=== PATIENT | female | born 1985 | race Caucasian/White ===

== ENCOUNTER 2018-09-08 00:23 | Emergency (ER) | payer MEDICAID, OTHER ==
[~2018-09-08] VITALS: Ht 160 cm; Wt 44.7 kg
[~2018-09-08 00:23] MED LIST: CYCL-394 PO; FLUT16SP2 NS; NAPR-56 PO; NO HOME MEDS
[2018-09-08 00:26] VITALS: BP 135/71
[2018-09-08] MEDS ORDERED: CLIN300C54 PO (00:54)
[2018-09-08] MEDS ORDERED: IBUP-1985 PO (00:54)
[2018-09-08] MEDS ORDERED: clindamycin 150mg capsule PO ONE (00:55)
== END 2018-09-08 01:09 | disposition home or self-care (01) ==
LOC: ER 00:23
DX: L03.211 Cellulitis of face (principal); F12.10 Cannabis abuse, uncomplicated; F15.10 Other stimulant abuse, uncomplicated; F17.200 Nicotine dependence, unspecified, uncomplicated; G89.29 Other chronic pain; Z86.14 Personal history of Methicillin resistant Staphylococcus aureus infection; Z56.0 Unemployment, unspecified; Z88.1 Allergy status to other antibiotic agents; Z88.0 Allergy status to penicillin
CPT/HCPCS: 99283

== ENCOUNTER 2024-01-02 19:56 | Emergency (ER) | payer MEDICAID ==
[~2024-01-02] VITALS: Ht 160 cm; Wt 57.3 kg
[~2024-01-02 19:56] MED LIST changes: +IBUP-1985 PO
[2024-01-02 20:52] LABS: BASOPHILS # (AUTO) 0.1 X10'3 (0-0.2); BASOPHILS % (AUTO) 0.4 % (0-1); EOSINOPHILS % (AUTO) 0 % (0-6); HEMATOCRIT 44.3 % (35.0-45.0); LYMPHOCYTES # (AUTO) 1.7 X10'3 (1.1-4.8); LYMPHOCYTES % (AUTO) 14.3 % (21-51); MEAN CORPUSCULAR HEMOGLOBIN 29.6 PG (27.0-31.0); MEAN PLATELET VOLUME 7.9 FL (7.4-10.4); MONOCYTES % (AUTO) 8.5 % (2-12); NEUTROPHILS # (AUTO) 9.1 X10'3 (1.8-7.7); NEUTROPHILS % (AUTO) 76.8 % (42-75); PLATELET COUNT 346 X10'3 (140-440); RED BLOOD COUNT 5.09 X10'6 (4.20-5.60); RED CELL DISTRIBUTION WIDTH 13.4 % (11.5-14.5); WHITE BLOOD COUNT 11.9 X10'3 (4.5-11.0)
[2024-01-02 21:04] LABS: ALANINE AMINOTRANSFERASE 15 U/L (12-78); ALBUMIN 3.2 G/DL (3.4-5.0); ALBUMIN/GLOBULIN RATIO 0.7 (1.1-1.5); ALKALINE PHOSPHATASE 79 IU/L (46-116); ANION GAP 12 (8-16); ASPARTATE AMINO TRANSFERASE 10 U/L (10-37); BILIRUBIN,TOTAL 0.6 MG/DL (0.1-1.0); BLOOD UREA NITROGEN 16 MG/DL (7-18); CALCIUM 8.2 MG/DL (8.5-10.1); CHLORIDE 101 MMOL/L (99-107); CREATININE 0.89 MG/DL (0.40-0.90); GLUCOSE 123 MG/DL (70-104); LIPASE 24 U/L (16-77); POTASSIUM 3.6 MMOL/L (3.5-5.1); SODIUM 134 MMOL/L (135-145); TOTAL CARBON DIOXIDE 21.1 MMOL/L (24-32); TOTAL PROTEIN 7.7 G/DL (6.4-8.2); eCRCL 72 ML/MIN; eGFR 71 ML/MIN
[2024-01-02 21:14] VITALS: TEMP 100.9
[2024-01-02 21:14] LABS: BILIRUBIN,URINE SMALL (Neg); CLARITY,URINE SLIGHTLY CLOUDY (Clear); COLOR,URINE YELLOW (Yellow); GLUCOSE, URINE NEGATIVE (Neg); KETONES,URINE TRACE mg/dl (Neg); LEUKOCYTE ESTERASE ,URINE TRACE (Neg); NITRITES, URINE POSITIVE (Neg); OCCULT BLOOD,URINE TRACE-INTACT (Neg); PH,URINE 5.5 (4.8-8.0); PROTEIN,URINE 30 mg/dl (Neg); UROBILINOGEN,URINE 0.2 E.U/dL (0.2-1.0)
[2024-01-02 21:15] LABS: URINE HCG NEGATIVE (NEG)
[2024-01-02 21:20] LABS: UA COLLECTION TYPE CLN CATCH MIDSTREAM
[2024-01-02 21:21] LABS: MUCUS STRANDS MANY /LPF (Neg); SQUAMOUS EPITHELIAL CELL,UR MODERATE /LPF (FEW)
[2024-01-02 21:22] LABS: BACTERIA,URINE 3+ /HPF (Neg); HYALINE CASTS 0-3 /LPF (NEGATIVE); WBC CLUMPS,URINE MODERATE /HPF (NEGATIVE); WBC,URINE 50-100 /HPF (0-4)
[2024-01-02 21:23] LABS: TRANSITIONAL EPI CELLS,URINE MODERATE /HPF
[2024-01-02] MEDS: morphine 4 MG/ML inj SYRINge IV ONE (21:35)
[2024-01-02] MEDS: diphenhydrAMINE 50 mg/ml inj IV ONE (21:55)
[2024-01-02] MEDS: metoclopramide 5 mg/ml inj IV ONE (21:56)
[2024-01-02] MEDS: glycopyrrolate 0.2mg/ml inj IV ONE (22:00)
[2024-01-02] MEDS: ketorolac trometh. 30mg/ml inj. IV ONE (22:00)
[2024-01-02] MEDS ORDERED: iohexol 300mg/ml 100ml inj. ONE (22:08)
[2024-01-02] MEDS: CefTRIAXone 2gm/D5W 50ml BAG 50 ML IV ONE (23:00)
[2024-01-02] MEDS: normal saline 1000ML IV soln IVB ONE (23:04)
[2024-01-02] MEDS ORDERED: DOXY-356 PO (23:44)
[2024-01-02] MEDS ORDERED: ONDA8TAB13 PO (23:44)
[2024-01-03 00:27] VITALS: BP 113/71; PULSE 94; RESP 14; O2SAT 98
== END 2024-01-03 00:33 | disposition home or self-care (01) ==
LOC: ER 19:57
DX: N39.0 Urinary tract infection, site not specified (principal); G89.29 Other chronic pain; Z86.14 Personal history of Methicillin resistant Staphylococcus aureus infection; F12.10 Cannabis abuse, uncomplicated; F15.10 Other stimulant abuse, uncomplicated; Z88.0 Allergy status to penicillin; Z88.1 Allergy status to other antibiotic agents; Z79.899 Other long term (current) drug therapy
CPT/HCPCS: 36415; 74177; 80053; 81001; 81025; 83690; 84145; 85025; 87077; 87088; 87186; 96365; 96375; 99285; J0696; J1200; J1885; J2765; J3490; J7030; Q9967

== ENCOUNTER 2024-09-08 22:56 | Emergency (ER) | payer MEDICAID ==
[~2024-09-08] VITALS: Ht 160 cm; Wt 61.0 kg
[~2024-09-08 22:56] MED LIST changes: +ONDA-245 PO
[2024-09-08] MEDS ORDERED: BETA15CR4 TOP (23:22)
[2024-09-08 23:38] VITALS: BP 136/68; PULSE 89; RESP 20; TEMP 98.6; O2SAT 98
== END 2024-09-08 23:40 | disposition home or self-care (01) ==
LOC: ER 22:56
DX: L30.8 Other specified dermatitis (principal); G89.29 Other chronic pain; M54.9 Dorsalgia, unspecified; Z56.0 Unemployment, unspecified; Z98.890 Other specified postprocedural states; Z72.89 Other problems related to lifestyle; F12.90 Cannabis use, unspecified, uncomplicated; F15.90 Other stimulant use, unspecified, uncomplicated; Z88.0 Allergy status to penicillin; Z88.1 Allergy status to other antibiotic agents; Z79.1 Long term (current) use of non-steroidal anti-inflammatories (NSAID); Z79.52 Long term (current) use of systemic steroids; Z79.899 Other long term (current) drug therapy
CPT/HCPCS: 99283

== ENCOUNTER 2025-07-21 18:03 | Inpatient (IN) | payer MEDICAID ==
[~2025-07-21] VITALS: Ht 160 cm; Wt 60.0 kg
[~2025-07-21 18:03] MED LIST changes: +BETA15CR4 TOP; -IBUP-1985 PO; +IBUP600T52 PO
--- NOTE | 2025-07-21 18:10 | Physician Documentation ---
History of Present Illness ~ Chief Complaint: Extremity Swelling Stated Complaint: SWELLING Time Seen by MD: 18:05 Primary Medical Doctor: Dr. Crowder HPI Patient presents to the emergency room for evaluation of right upper extremity pain and swelling that began this morning. She states that she may have scratched her hand by holding the leash of her dog. She denies any falls or traumas. No fevers. She had a sparing antibiotic that she took for it. Tetanus within 5 years: Yes Medication Reconciliation Allergies: Coded Allergies: Penicillins (Verified Allergy, Intermediate, RASH, 07/21/25) amoxicillin (Verified Allergy, Unknown, 07/21/25) Scheduled Betamethasone Dipropionate (Betamethasone Dipropionate), 1 APPLIC TOP Q12H Cyclobenzaprine HCl (Cyclobenzaprine HCl), 10 MG PO TID PRN MUSCLE SPASM Fluticasone Propionate (Flonase), 16 GM NS DAILY Naproxen (Naproxen), 500 MG PO Q12H Ondansetron 8mg ODT (Ondansetron Odt), 1 TAB PO Q6H Scheduled PRN Ibuprofen (Ibuprofen), 1 TAB PO Q6H PRN PRN for pain Miscellaneous Medications Home Med List (No Home Medications), (Reported) Past Medical History Past Medical History: Pneumonia, Chronic Pain, Chronic Back Pain, MRSA Abscess Past Surgical History: Alcohol Use: Occasionally Drug Use: marijuana, methamphetamine Lives with: Family Lives In: Home Occupation: unemployed Review of Systems ROS All review of systems negative except as per HPI Physical Exam Vital Signs: Temperature: 99.3, Source: Oral, Heart Rate: 103, Respiratory Rate: 22, BP: 115/79, Pulse Oximetry: 100, Weight: 60.000 Oxygen Flow Rate: 0 Physical Exam General: Patient is awake, alert, oriented x4 in no acute distress and well appearing.~ Head: Normocephalic and atraumatic. Eyes: Conjunctival normal. EOMI. PERRL. ENT: Mucous membranes moist. Neck: Supple, trachea is midline. Chest: Clear to auscultation bilaterally without rales, rhonchi, or wheezes. There is no accessory muscle use or retractions. Cardiac: RRR without murmurs, gallops, or rubs. Extremities: Left upper extremity normal, right upper extremity with significant swelling focused on patient's 3rd right MP joint the associated swelling and tenderness to palpation and increased warmth. Progress Results/Orders Results/Orders Orders - ROBERTO MORALES MD Culture Blood (07/21/25 18:11) Chest,Single View (07/21/25 18:11) Ct Upper Extremities (07/21/25 20:17) Cult Urine + [place] Ct (07/21/25 20:24) Page Hospitalist (07/21/25 20:55) Fill Out Med Reconciliation (07/21/25 20:55) Ketorolac Trometh 15mg/Ml Vial (Toradol (07/21/25 21:05) Completed Orders - ROBERTO MORALES MD Electrocardiogram (07/21/25 18:11) Cbc/Diff (07/21/25 18:11) MG (07/21/25 18:11) Chest,Single View (07/21/25 18:11) Procalcitonin (07/21/25 18:11) Vancomycin/Ns 1 Gm [place] (Vancomyc (07/21/25 18:15) BMP (07/21/25 18:11) Lacticsepsis (07/21/25 18:11) Drug Screen, Urine (07/21/25 18:11) Normal Saline 1000ml (0.9% Sodium Chlori (07/21/25 18:15) Ct Upper Extremities (07/21/25 20:17) Fentanyl/Pf (Fentanyl 0.05 Mg/Ml Syringe (07/21/25 18:15) Ondansetron Inj. (Zofran 4mg/2ml Vial) (07/21/25 18:15) Iohexol 300mg/Ml 100ml Inj. (Omnipaque-3 (07/21/25 18:42) Hcg Serum Ql (07/21/25 19:30) Ceftriaxone/O4z-Kqilbevh 1gm (Rocephin 1 (07/21/25 19:35) Ua W/Microscopic, Cult If Ind (07/21/25 19:55) Hydromorphone 0.5 Mg/0.5 Ml/Pf (Dilaudid (07/21/25 21:00) Medications Received in ER Medications (Trade) Dose Ordered Sig/Rohith Route PRN Reason Start Time Stop Time Status Last Admin Dose Admin Vancomycin HCl 250 ml @ 166 mls/hr ONCE ONCE IV 07/21/25 18:15 07/21/25 19:45 DC 07/21/25 19:06 166 MLS/HR (0.9% sodium chloride (NS) 1000ml IV soln) 2,000 ml ONCE ONCE IVB 07/21/25 18:15 07/21/25 18:16 DC 07/21/25 19:06 2,000 ML (Zofran 4mg/2ml vial) 4 mg ONCE ONCE IV 07/21/25 18:15 07/21/25 18:16 DC 07/21/25 19:06 4 MG Vital Signs 07/21/25 07/21/25 07/21/25 07/21/25 18:04 18:09 19:12 20:24 Temp 99.3 Pulse 103 95 82 Resp 22 12 13 B/P (MAP) 115/79 109/74 (86) 116/71 (86) Pulse Ox 100 99 100 O2 Flow Rate 0 0 Laboratory Tests Test 07/21/25 18:32 07/21/25 19:38 07/21/25 19:55 White Blood Count 19.9 H Red Blood Count 4.19 L Hemoglobin 12.4 Hematocrit 36.7 Mean Corpuscular Volume 87.5 Mean Corpuscular Hemoglobin 29.5 Mean Corpuscular Hemoglobin Concent 33.7 Red Cell Distribution Width 13.7 Platelet Count 282 Mean Platelet Volume 8.1 Neutrophils (%) (Auto) 87.8 H Lymphocytes (%) (Auto) 6.3 L Monocytes (%) (Auto) 5.6 Eosinophils (%) (Auto) 0 Basophils (%) (Auto) 0.3 Neutrophils # (Auto) 17.4 H Lymphocytes # (Auto) 1.3 Monocytes # (Auto) 1.1 H Eosinophils # (Auto) 0.0 Basophils # (Auto) 0.1 CBC Comment Sodium Level 133 L Potassium Level 3.5 Chloride Level 99 Carbon Dioxide Level 24.9 Anion Gap 9 Blood Urea Nitrogen 13 Creatinine 0.72 Estimated GFR/1.73 m2 90 BUN/Creatinine Ratio 18.1 Glucose Level 105 H Lactic Acid Level 0.6 Calcium Level 8.9 Magnesium Level 1.6 Albumin 3.2 L Procalcitonin 0.10 Chemistry Comments Human Chorionic Gonadotropin, Qual Negative Urine Specimen Description Cln catch midstream Urine Color Straw Urine Clarity Slightly cloudy Urine pH 6.0 Urine Specific [place] <=1.005 Urine Protein Negative Urine Glucose (UA) Negative Urine Ketones 15 H Urine Occult Blood Moderate H Urine Nitrite Positive H Urine Bilirubin Negative Urine Urobilinogen 0.2 Urine Leukocyte Esterase Moderate H Urine RBC 3-10 Urine WBC 20-30 H Urine Squamous Epithelial Cells Few Urine Amorphous Urates 1+ Urine Bacteria 4+ Urine Mucus Few Urine Culture Indicated Indicated Volume Urine Centrifuged 10 ml Urine Comment Urine Opiates Screen Negative Urine Methadone Screen Negative Urine Fentanyl Screen Negative Urine Barbiturates Screen Negative Urine Phencyclidine Screen Negative Urine Amphetamines Screen Positive Urine Benzodiazepines Screen Negative Urine Cocaine Screen Negative Urine Cannabinoids Screen Negative Drug Screen Comment Microbiology Date/Time Source Procedure Growth Status 07/21/25 18:32 Blood Arm Right Blood Culture - Preliminary NEGATIVE (LESS THAN 24 HOURS) Resulted EKG/XRAY/CT/US/VASC/MRI EKG : Additional Comment EKG interpreted by myself shows time of 1823, rate 95, sinus rhythm, right axis deviation, no ST changes Chest X-Ray : Additional Comments Exam: CHEST,SINGLE VIEW CHEST RADIOGRAPH Indication: SEPSIS Technique: Single frontal view of the chest was obtained Comparison: None FINDINGS: Lines and Tubes: None Lungs: No focal consolidation. Pleura: No effusion. No pneumothorax. Cardiomediastinal contours: Unremarkable Bones: No acute osseous abnormality. IMPRESSION: No acute cardiopulmonary disease. Medical Decision Making Findings Patient presents to the emergency room with obvious infection to her right upper extremity. Differentials include but are not limited to sepsis, abscess, necrotizing fasciitis, cellulitis, osteomyelitis therefore emergent labs and imaging indicated. Significant elevation of white blood cell count along with significant symptoms I do not believe patient would do well on outpatient basis. IV antibiotics initiated. Departure Admitted to Inpatient Unit: yes, to hospitalist Impression: Primary Impression: Cellulitis Additional Impression: Early sepsis Condition: Guarded Referrals: NO PRIMARY CARE PROVIDER (PCP) Signature Scribe Signature: No scribe Attestation: The note accurately reflects work and decisions made by me.Roberto Morales MD 07/21/25 21:07 ROBERTO MROALES MD Jul 21, 2025 18:10
--- NOTE | 2025-07-21 18:25 | ELECTROCARDIOGRAPH REPORT ---
[facility] Test Date: 2025-07-21 Test Time: 18:23:30 Pat Name: SEVEN ALAN Department: [facility]- Patient ID: [facility]-[id number] Room: [place] [address] Gender: F [employer] Technician: : 1985 Requested By: FACUNDO PETERS Order Number: [id number] Reading MD: Dr. Dave Cortez Measurements Intervals [place] Rate: 95 P: 103 [place]: 133 QRS: 115 QRSD: 87 T: 22 QT: 337 QTc: 424 Interpretive Statements Right and left arm electrode reversal, interpretation assumes no reversal Sinus rhythm Right axis deviation Minimal ST depression, inferior leads Borderline ST elevation, lateral leads Baseline wander in lead(s) II Electronically Signed On 07-23-2025 19:18:[address] Dave Cortez Please click the below link to view image of tracing.
[2025-07-21] MEDS ORDERED: iohexol 300mg/ml 100ml inj. ONE (18:42)
[2025-07-21 19:02] LABS: CREATININE 0.72 MG/DL (0.40-0.90); TOTAL CARBON DIOXIDE 24.9 MMOL/L (24-32); eCRCL 87 ML/MIN; eGFR 90 ML/MIN
--- NOTE | 2025-07-21 19:02 | RADIOLOGY REPORT ---
CHEST RADIOGRAPH Indication: SEPSIS Technique: Single frontal view of the chest was obtained Comparison: None FINDINGS: Lines and Tubes: None Lungs: No focal consolidation. Pleura: No effusion. No pneumothorax. Cardiomediastinal contours: Unremarkable Bones: No acute osseous abnormality. IMPRESSION: No acute cardiopulmonary disease.
[2025-07-21 19:03] LABS: MEAN PLATELET VOLUME 8.1 FL (7.4-10.4); RED CELL DISTRIBUTION WIDTH 13.7 % (11.5-14.5)
[2025-07-21] MEDS: ondansetron/PF 4mg/2ml inj IV ONE (19:06)
[2025-07-21] MEDS: fentaNYL/PF 50MCG/1 ML 2ML syringe IV ONE (19:06)
[2025-07-21] MEDS: vancomycin/NS 1 GM ADD-VANTAGE 250 ML IV ONE (19:06)
[2025-07-21] MEDS: normal saline 1000ML IV soln IVB ONE (19:06)
[2025-07-21 19:57] LABS: HCG SERUM QL NEGATIVE
[2025-07-21 20:07] LABS: LEUKOCYTE ESTERASE ,URINE MODERATE (Neg); NITRITES, URINE POSITIVE (Neg); OCCULT BLOOD,URINE MODERATE (Neg)
[2025-07-21 20:10] LABS: UA COLLECTION TYPE CLN CATCH MIDSTREAM
[2025-07-21 20:23] LABS: URINE AMPHETAMINE SCREEN POSITIVE (Neg); URINE BARBITUATE SCREEN NEGATIVE (Neg); URINE BENZODIAZEPINES SCREEN NEGATIVE (Neg); URINE CANNABINOID SCREEN NEGATIVE (Neg); URINE COCAINE SCREEN NEGATIVE (Neg); URINE METHADONE SCREEN NEGATIVE (Neg); URINE OPIATE SCREEN NEGATIVE (Neg); URINE PHENCYCLIDINE SCREEN NEGATIVE (Neg)
[2025-07-21 20:24] LABS: AMORPHOUS URATES 1+; MUCUS STRANDS FEW /LPF (Neg); SQUAMOUS EPITHELIAL CELL,UR FEW /LPF (FEW)
--- NOTE | 2025-07-21 20:50 | RADIOLOGY REPORT ---
INDICATION: infection COMPARISON: None TECHNIQUE: CT of the right wrist and hand was performed with contrast. Volume transverse images were obtained and reconstructed in multiple planes using bone and soft tissue algorithms. Radiation Dose Information: CT Dose: CTDI volume is 3 mGy. Dose-length product is 110 mGy*cm FINDINGS: Exam is significantly limited by suboptimal planes of acquisition and reformation. [place] soft tissue attenuation along the dorsal hand extending along the index digit. No obvious fluid collection or evidence of soft tissue gas. No appreciable tendon sheath effusion or evidence of muscle inflammation. Vascular structures are normal. Normal osseous mineralization. No fracture or joint malalignment. No obvious effusion of the wrist or hand is appreciated. IMPRESSION: 1. Limited exam of the right wrist and hand. 2. Soft tissue attenuation along the dorsal hand and index digit likely infectious/inflammatory. No obvious fluid collection, joint or tendon sheath effusion bilateral limited assessment. All CT scans at this medical facility are performed using dose modulation techniques as appropriate to a performed exam including the following: Automated exposure control was utilized; adjustment of the MA and/or KV according to patient size; and use of iterative reconstruction technique.
[2025-07-21] MEDS ORDERED: HYDROmorphone inj. 0.5 MG/0.5 ML DISP.SYRIN IV ONE (21:00)
[2025-07-21] MEDS ORDERED: potassium Cl 20 mEq SR tablet PO PRN (21:05)
[2025-07-21] MEDS ORDERED: ondansetron/PF 4mg/2ml inj IV PRN (21:05)
[2025-07-21] MEDS ORDERED: magnesium sulf-water 2g/50mL 50 ML IV PRN (21:05)
[2025-07-21] MEDS ORDERED: magnesium Cl slow-release 64mg tablet PO PRN (21:05)
[2025-07-21] MEDS ORDERED: magnesium sulf-water 4G/100mL 100 ML IV PRN (21:05)
[2025-07-21] MEDS ORDERED: mag hydrox/Alum hydrox/simeth 30ml oral suspension PO PRN (21:05)
[2025-07-21] MEDS ORDERED: potassium Cl 40MEQ/1/2NS 520ml 520 ML IV PRN (21:05)
[2025-07-21] MEDS: CefTRIAXone/D5W-Rocephin 1gm 50 ML IV ONE (21:06)
[2025-07-21] MEDS: ketorolac trometh 15mg/ml vial 15 MG/ML ML IV ONE (21:08)
--- NOTE | 2025-07-21 21:57 | HISTORY AND PHYSICAL-Residence ---
History & Physical Providers to Resident Creating Document: TRUDI AKBAR, RES ~ History of Present Illness Primary Medical Doctor: Dr. Crowder Reason for Admit\Complaint: cellulitis right hand History of Present Illness 40-year-old female has come to the ED with chief complaints of pain and swelling in her right hand that started this morning. Patient says that she does not know the exact reason but most likely thinks that she may have scratched her hand by holding the leash of her dog. Patient reports that pain suddenly started this morning in her right hand knuckle region, gradually progressed in intensity to involve her whole of her right hand later on, associated with nausea. She rates the pain as 10/10 in intensity. Patient reports that she noticed a small prick on her right hand index finger which was not present earlier but is not sure how it occured. Patient denies any history of insect/animal bite, penetrating trauma, needle puncture or IV puncture. Patient also reports of having burning micturition and blood in urine since the last few days. She denies any other complaints of fever, sweating, vomiting, abdominal pain, loose stools. Allergies: Coded Allergies: Penicillins (Verified Allergy, Intermediate, RASH, 07/21/25) amoxicillin (Verified Allergy, Unknown, 07/21/25) Home Medications Home Medications Active Reported No Home Medications (Home Med List) Each Past Medical History Past Medical History No significant medical history present Past Surgical History Surgical History Comment 3 C- sections LEEP procedure Past Social History Social History Comment Patient quit smoking 6 years ago, smoked earlier for 15 years, less than a pack per day. To drink heavily in her teenage years, and does not drink anymore. Uses meth sometimes Patient currently staying with her friend at home Currently unemployed PCP [facility] Sees no other doctors FAMILY HISTORY- No significant family history Smoking: Cigarettes Alcohol Use: Occasionally Drug Use: Marijuana, Methamphetamine Lives with: Family Lives In: Home Occupation: unemployed ROS ROS Constitutional: No fever, chills, dizziness Eyes: No pain, erythema, discharge, blurring of vision ENT: No sore throat, epistaxis, tinnitus Cardiovascular:No chest pain, palpitations, syncope, lower extremity edema, paroxysmal nocturnal dyspnea Respiratory: no shortness of breath ,No cough, No hemoptysis. Gastrointestinal: No Abdominal pain, constipation, diarrhea.. Musculoskeletal: No pain, deformities Integumentary:Severe pain and swelling in the right hand region. Neurologic: No weakness,No headache, neck pain, numbness or tingling of the extremities, Psychiatric: No delusions, depression, loss of interest in normal activity or change in sleep pattern, hallucinations, suicidal ideations Endocrine: No fatigue, no weakness. polydipsia, polyuria, change in appetite, heat or cold intolerance, sweating, dry skin Hematological: No bleeding, petechiae, bruising Allergies: No asthma or urticaria Exam Vitals: Vital Signs Date Time Temp Pulse Resp B/P (MAP) Pulse Ox O2 Delivery O2 Flow Rate FiO2 07/21/25 21:25 98.6 91 18 133/77 (95) 99 07/21/25 19:12 0 General: Patient sleeping, when awake, in acute distress due to pain HEENT: Atraumatic, normocephalic, EOMI, anicteric sclera ; pink conjunctiva Neck: Trachea midline. Supple, full range of motion, no JVD Cardiac: Regular rhythm, regular rate with no murmurs all over the precordium. Respiratory: Equal breath sounds bilaterally, no tachypnea, no wheezing ,rub or rales, Chest wall is symmetric and without deformity. Gastrointestinal: , Abdomen symmetric, non-distended, soft, nontender, normal bowel sounds x4 quadrant, normoactive, no hepatosplenomegaly Musculoskeletal: No pedal edema, no cyanosis Neurological: Speech is clear, alert, and oriented x 4. No motor or sensory deficit, deep tendon reflexes normal, cerebellar intact. Cranial nerves II-XII intact. Skin: Skin over the right hand region is swollen, red and warm to touch, multiple red color streaks present over the right forearm region. Diagnostic Data Last Recorded Lab Results: 07/21/25 1832 07/21/25 1832 Advance Care Planning Advanced Care plannin - 30 Minutes (full code) Additional Plan Onjaqetsct-78-mqre-old female came in with complaints of pain and swelling in the right hand region. Cellulitis of right hand SIRS- positive Heart rate-93 WBC count-19.9 Procalcitonin-normal, not elevated Lactic acid-normal(0.6) Upper extremity CT- Soft tissue attenuation along the dorsal hand and index digit likely infectious/inflammatory. No obvious fluid collection, joint or tendon sheath effusion bilateral limited assessment. 1 gm vancomycin IV and 1 gm ceftriaxone given in the ED.Continuing patient on vancomycin. Started Zosyn 3.75 mg q.8h. Toradol 15 mg given in the ED for pain. 2 L IV bolus NS given in the ED. continuing with NS 100ml/hr. Consulted ortho for possible compartment syndrome. Awaiting recommendations. UTI- Patient complaining of burning micturition and blood in the urine. Urine analysis positive for- Occult blood, urine nitrites, leukocyte esterase, urine WBC-20-30, bacteria 4+ Follow-up with urine cultures. Patient on IV fluids NS. Started on Zosyn. Methamphetamine abuse- Urine toxicology positive for meth. Substance use navigator consulted. Fiction And Nonfiction Prose Writer consulted. Echo ordered. Follow-up. Code status: Full code DVT prophylaxis: Heparin GI prophylaxis: None Diet/nutrition: Regular diet Prognosis: Guarded Trudi Akbar PGY-1. Date of Service: Jul 21, 2025 Billing Provider: DEEPA KRISHNAN MD Addendum Attestation I agree with the residents assessment and plan as below: 40 year old female admitted with cellulitiss of the hand after a dog bite Plan: ortho consult continue abx send blood cultures OT a nd PT eval CCT 42 min using HIPPA compliant A/V technology TRUDI AKBAR, RES Jul 21, 2025 21:57 DEEPA KRISHNAN MD Jul 22, 2025 07:37
[2025-07-21] MEDS: normal saline 1000ml 1,000 ML IV SCH (22:09)
[2025-07-22] VITALS (7 sets, daily range): BP systolic 100–128; BP diastolic 66–83; PULSE 55–109; RESP 14–18; TEMP 97.8–99; O2SAT 97–100
[2025-07-22] MEDS: piperacillin/tazo 3.375gm/50ml 50 ML IV SCH (00:21)
[2025-07-22] MEDS: piperacillin/tazo 3.375gm/50ml 50 ML IV ONE (00:21)
[2025-07-22] MEDS: potassium Cl 20 mEq SR tablet PO PRN (05:24)
[2025-07-22] MEDS: morphine 4 MG/ML inj SYRINge IV PRN ×2 (05:29→07:52)
[2025-07-22] MEDS ORDERED: HYDROcodone/acetaminophen 5mg/325mg tablet PO PRN (07:30)
--- NOTE | 2025-07-22 07:41 | CONSULTATION REPORT ---
History of Present Illness Providers to CC ~ Reason for Admit\Admit Dx: cellulitis right hand Refering MD: Larry Oswald History of Present Illness The patient is a 40-year-old woman who presented with a one day history of sudden onset right hand swelling and pain. She thinks it began in the index finger but it has progressed through the hand. She is in intractable pain and feels the pain is extending up her forearm. The other digits of the hand are involved but not nearly as much as the index finger. She denies prior episodes of this she states she has no other issues either on the other hand or the lower extremities CT scan upon admission did not show any evidence of fluid collection or free air Allergies: Coded Allergies: Penicillins (Verified Allergy, Intermediate, RASH, 07/21/25) amoxicillin (Verified Allergy, Unknown, 07/21/25) Home Medications Home Medications Active Reported No Home Medications (Home Med List) Each Past Family History Family History: Patient reports no known family medical history. Physical Exam Last Vital Signs Recorded: Temperature: 98.6, Source: Oral, Heart Rate: 77, Respiratory Rate: 14, BP: 121/83, Pulse Oximetry: 100, Weight: 60.000 General Appearance: alert, severe distress Extremities The right hand has diffuse swelling on the dorsum. There was a small lesion on the dorsum of the index finger which could be the nidus of infection. The index is the most involved with the swelling. No fluctuance is felt. There is severe tenderness to palpation on the index and dorsum of the hand. She keeps the index and a slightly flexed position. The remainder of the fingers are swollen but she can move them with a minimal discomfort. The hand and forearm are warm. There was no obvious fluid collection in the forearm the sensation is grossly intact distally. Results Results/Orders Results/Orders CT scan was reviewed did not show any fluid collection but was suboptimal due to positioning Diagram Lab Result Diagram: 07/21/25 1832 07/21/25 183 Assessment/Plan Problems/Diagnosis: (1) Cellulitis Additional Plan The swelling though severe is to be expected. We will treat her with the antibiotics and elevation as well as warm compresses for now. I will re- evaluate later in the day. Problem Qualifiers (1) Cellulitis: Qualified Codes: L03.011 - Cellulitis of right finger CLINT ROMANO Jr., MD Jul 22, 2025 07:41
[2025-07-22] MEDS: heparin, porcine 5000 units/ml vial SQ SCH (07:42)
[2025-07-22] MEDS: vancomycin/NS 1 GM ADD-VANTAGE 250 ML IV SCH (07:43)
[2025-07-22] MEDS: K and/or MAG REPLACEMENT MC SCH (07:43)
[2025-07-22] MEDS: docusate sod 100mg capsule PO SCH (07:43)
[2025-07-22 09:41] LABS: MEAN PLATELET VOLUME 8.2 FL (7.4-10.4); RED CELL DISTRIBUTION WIDTH 14.0 % (11.5-14.5)
[2025-07-22 10:01] LABS: CHOL/HDL RATIO 1.5 (0.00-4.99); CREATININE 0.68 MG/DL (0.40-0.90); LDL CHOLESTEROL 28 MG/DL (50-100); TOTAL CARBON DIOXIDE 20.2 MMOL/L (24-32); eCRCL 92 ML/MIN; eGFR > 90 ML/MIN
[2025-07-22] MEDS: HYDROcodone/acetaminophen 10/325mg tab PO PRN (10:24)
--- NOTE | 2025-07-22 14:51 | PROGRESS NOTE ---
Daily Progress Note Providers to CC ~ Antibiotic Timeout Antibiotic Ordered?: Yes Subjective No acute events overnight. Patient examined at bedside. No new complaints, not in acute distress. Patient denies chest pain, sob, palpitations, abdominal pain, n/v/d. Vss, labs notable for downtrending white count and otherwise unremarkable. CT shows soft tissue attenuation along the dorsal hand and index digit likely infectious/inflammatory. No obvious fluid collection, joint or tendon sheath effusion bilateral limited assessment. 1/2 blood cx gram positive cocci. Echo shows LVEF 55%, no evidence of vegetation. Urine cx gram negative rachael. Continued on vancomycin and Zosyn. MRI to follow. Objective Vital Signs Date Time Temp Pulse Resp B/P (MAP) Pulse Ox O2 Delivery O2 Flow Rate FiO2 07/22/25 10:24 18 07/22/25 10:10 126/80 (95) 07/22/25 10:00 97.8 55 97 Room Air 07/22/25 05:44 0.0 Result Diagram: 07/22/25 0908 07/22/25 0908 Physical Exam General: Generalized weakness, A&Ox 3, NAD HEENT: Normocephalic, PERRLA Neck: Supple, trachea midline, no JVD Chest: Clear to auscultation bilaterally Cardiovascular: RRR, S1&S2 GI: Soft and nontender Extremities: Edematous and erythematous right hand down to right wrist, pronounced edema of right index finger, small lesion on the dorsum of the index finger POT RUNNER: CN II-XII intact, no focal deficits Musculoskeletal: No paraspinal muscle tenderness, no muscle spasm Skin: Warm and intact Problem\Assessment\Plan 40-year-old female came in with complaints of pain and swelling in the right hand region. Assessment & Plan Cellulitis, right hand Tensynovitis, right hand Sepsis 2/2 cellulitis- POA Septic joint, osteomyelitis- to rule out -Lactic acid, procal negative, CT soft tissue attenuation along the dorsal hand and index digit likely infectious/inflammatory. No obvious fluid collection, joint or tendon sheath effusion bilateral limited assessment. -07/22: fluids, vanco/Zosyn, 1/2 blood cx gram positive cocci, echo shows LVEF 55%, no evidence of vegetation; follow MRI UTI, symptomatic -Zosyn Methamphetamine abuse Substance use navigator, clinical social work therapist consult Code status: Full code DVT prophylaxis: Heparin Date of Service: Jul 22, 2025 Billing Provider: CURTIS SAMSON Common Visit Codes: [id number] INP/OBS CARE(HIGH) CURTIS SAMSON Jul 22, 2025 14:51
--- NOTE | 2025-07-22 16:18 | ELECTROCARDIOGRAPH REPORT ---
[facility] Test Date: 2025-07-22 Test Time: 16:13:31 Pat Name: SEVEN ALAN [id number] Room: [place] [address] A Gender: F Certified Tumor Registrar: DEYVI : 1985 Requested By: CURTIS SAMSON Order Number: [id number] Reading MD: Dr. CRYSTAL Ramesh Measurements Intervals [place] Rate: 94 P: 83 VT: 138 QRS: 90 QRSD: 78 T: 72 QT: 338 QTc: 422 Interpretive Statements Normal sinus rhythm Electronically Signed On 07-22-2025 16:53:[address] CRYSTAL Ramesh Please click the below link to view image of tracing.
--- NOTE | 2025-07-22 18:31 | CARDIOLOGY REPORT ---
APPROVED REPORT EXAM: Comprehensive 2D, Doppler, and color-flow Echocardiogram. Patient Location: 353 A Blood Pressure: 126/80 mmHg Heart Rate: 87 bpm Rhythm: SINUS Indications CARDIOMYOPATHY METHAMPHETAMINE USE R ARM CELLULITIS Retail Assistant Store Manager: none Previous echo: none 2D Dimensions IVSd 0.9 (0.7-1.1cm) LVDd 4.7 cm PWd 1.0 (0.7-1.1cm) IVSs 1.2 (0.8-1.2cm) LVDs 3.4 (2.5-4.0cm) PWs 1.3 (0.8-1.2cm) LVOT Diameter 2.01 (1.8-2.4cm) LVEF(%) 53.6 (>50%) Ao Asc Diam. 2.99 cm IVC 21.54 mm FS (%) 27.6 % SV 53.6 ml CO 4.4 L/min M-Mode Dimensions Left Atrium(MM) 2.34 (2.5-4.0cm) Aortic Root 3.01 (2.2-3.7cm) Aortic Cusp Exc 2.18 (1.5-2.0cm) MV EPSS 0.7 (<0.5cm) Aortic Valve AoV Peak Angelo. 149.0 cm/s AoV VTI 28.0 cm AO Peak GR. 8.9 mmHg AO Mean GR. 5 mmHg LVOT VTI 19.29 cm LVOT Peak Angelo. 109.5 cm/s CHARLI(VTI)/BSA 2.18 cm2/m2 CHARLI (VTI) 2.18 cm2 Mitral Valve MV E Velocity 103.8 cm/s MV Peak Gr. 6 mmHg MV DECEL TIME 224 ms MV A Velocity 79.4 cm/s MV PHT 64 ms E/A Ratio 1.3 MVA (PHT) 3.44 cm2 MV VMax 119.4 cm/s TDI Medial E' P. V 11.23 cm/s E/Medial E' 9.2 Tricuspid Valve TR P. Velocity 261 cm/s RAP ESTIMATE 5 mmHg TR Peak Gr. 27 mmHg RVSP 32 mmHg Pulmonary Vein S1 Velocity 69.8 cm/s D2 Velocity 41.5 cm/s PVa Velocity 25.2 cm/s PVa Duration 116 msec LEFT VENTRICLE Normal LV size and wall thickness. Overall systolic function is low normal. LVEF is 55%. RIGHT VENTRICLE RV is normal size and function. RVSP is estimated at 32 mmHg. ATRIA LA size is normal. RA size is normal. Chiari network is noted in the right atrium. AORTIC VALVE Trileaflet AV appears mildly sclerotic without stenosis. Trace insufficiency. MITRAL VALVE Mild MV annular calcification without stenosis. Trace regurgitation. TRICUSPID VALVE TV appears structurally normal with trace regurgitation. PULMONIC VALVE Normal PV without stenosis, physiologic insufficiency. GREAT VESSELS Aortic root is normal in size. Ascending aorta is normal in size. IVC is dilated and collapses greater than 50% with inspiration. PERICARDIUM Normal pericardium. No effusion. Other Information Study Quality: Adequate Conclusion Normal LV size and wall thickness. Overall systolic function is low normal. LVEF is 55%. RV is normal size and function. RVSP is estimated at 32 mmHg. LA size is normal. RA size is normal. Chiari network is noted in the right atrium. Trileaflet AV appears mildly sclerotic without stenosis. Trace insufficiency. Mild MV annular calcification without stenosis. Trace regurgitation. TV appears structurally normal with trace regurgitation. Normal pericardium. No effusion.
--- NOTE | 2025-07-22 19:24 | RADIOLOGY REPORT ---
EXAM: MR MRI UPPER EXTREMITY RIGHT DATE OF SERVICE: 07/22/2025 05:12 PM ORDERING PHYSICIAN: CURTIS SAMSON REASON FOR EXAM: r/o osteomyelitis, septic joint TECHNIQUE: MRI images of the right hand were acquired without IV contrast. COMPARISON: CT CT UPPER EXTREMITIES W/ IV CONTRAST on DOS: 07/21/25 FINDINGS: There is diffuse soft tissue swelling, severe dorsally. No definite discrete fluid collection is seen. There is no abnormal bone marrow signal change to suggest acute osteomyelitis. No definite erosive changes or fluid is seen at the joints to suggest septic arthritis. The imaged palm musculature demonstrates no evidence for myositis. IMPRESSION: Extensive cellulitis. No MRI evidence for acute osteomyelitis or septic arthritis. End of Report
[2025-07-22] MEDS: HYDROmorphone inj. 0.5 MG/0.5 ML DISP.SYRIN IV PRN (20:00)
[2025-07-23] VITALS (7 sets, daily range): BP systolic 103–124; BP diastolic 56–76; PULSE 80–99; RESP 16–20; TEMP 98–99.3; O2SAT 96–100
[2025-07-23] MEDS: piperacillin/tazo 3.375gm/50ml 50 ML IV SCH (04:17)
[2025-07-23 07:37] LABS: MEAN PLATELET VOLUME 7.9 FL (7.4-10.4); RED CELL DISTRIBUTION WIDTH 13.7 % (11.5-14.5)
[2025-07-23 07:51] LABS: CREATININE 0.57 MG/DL (0.40-0.90); TOTAL CARBON DIOXIDE 26.8 MMOL/L (24-32); eCRCL 110 ML/MIN; eGFR > 90 ML/MIN
[2025-07-23] MEDS: VANCOMYCIN LEVEL IV ONE (08:08)
--- NOTE | 2025-07-23 10:35 | CONSULTATION REPORT - RESIDENT ---
Consult Providers to CC Resident Creating Document: CATHI GALLARDO RES History of Present Illness Reason for Admit\Complaint: Hand swelling History of Present Illness 40 years old female with history of current methamphetamine IV drug user, presented to the ED due to right hand swelling. She reported the swelling started from right index and during a 24 hours has been extended to the dorsum of the hand, and currently the forearm also involved. Patient also reported subjective fever and chills the day of admission. She denied any chest pain, shortness of breath, abdominal pain, however reported hematuria and urinary frequency and urgency. She is homeless, denied recent travel, denied any hand trauma, any gardening and exposure to plants and soil. She is active methamphetamine IV drug user, but denied any hand injection Allergies: Coded Allergies: amoxicillin (Verified Allergy, Unknown, 07/21/25) Home Medications Home Medications Active Reported No Home Medications (Home Med List) Each Past Medical History Past Medical History Syphilis MRSA axillary abscess 2016 Past Surgical History Surgical History Comment Three Loop electrosurgical excision procedure LEEP Family History Family History: Patient reports no known family medical history. Past Social History Social History Comment Smoked cigarettes about one pack a day for 15 years, quit smoking seven years ago Was a heavy drinker when he was a teenager however he quit drinking Methamphetamine IV drug abuser ROS ROS Constitutional: No fever, dizziness, weakness. no change in appetite/weight HEENT: No blurring of the vision, No sore throat, epistaxis, tinnitus Cardiovascular: no chest pain/discomfort, palpitations, no syncope. No pedal edema Respiratory: No sob, cough,, hemoptysis Gastrointestinal: no abdominal pain, no nausea, vomiting. no diarrhea, no constipation, melena. Genitourinary: Hematuria, urgency and frequency for one week Musculoskeletal: As above Endocrine: No polydipsia, polyuria. No heat or cold intolerance Neurologic: No headache, vertigo. No weakness, yes for numbness or tingling of extremities Psychiatric: No hallucinations/delusions, no anhedonia, no suicidal ideation\ Hematologic: No bleeding or bruises Exam Vitals: Vital Signs Date Time Temp Pulse Resp B/P (MAP) Pulse Ox O2 Delivery O2 Flow Rate FiO2 07/23/25 08:05 16 07/22/25 22:00 98.3 109 117/71 (86) 100 Room Air 07/22/25 20:00 0.0 General: General: Awake and Alert, no acute distress. HEENT: Conjunctiva pink, Sclera clear, Mucus Membranes moist. Neck: Supple without masses and tenderness. Resp: Lungs clear to auscultation bilaterally. Heart: Regular Rate and rhythm, normal S1 and S2 Abdomen: Soft and non tender no organomegaly Extremities: Right hand extensive edema on the index finger, and it is extended to the dorsum of the hand and forearm, sever erythema on upper 2/3 of index finger and tenderness, limited range of motion of PIP due to swelling and pain, overlying the PIP joint is a tense bolus lesion Pulse was intact Negative for splinter hemorrhage, Janeway lesions, Axillary: Right side, tender lymph node Skin: Warm and Dry., multiple track mathews Neurological: Speech is clear, alert, and oriented x 4, no gross neurological deficits Diagnostic Data Last Recorded Lab Results: 07/23/25 0726 07/23/25 0726 Additional Plan 40 years old female with history of current methamphetamine IV drug abuse presented to the ED with hand swelling Sepsis Cellulitis IV drug methamphetamine Leukocytosis trending down, procalcitonin normal 1/2 blood culture positive for Gram-positive cocci in pair and chain CT scan showed: Soft tissue attenuation along the dorsal hand and index digit likely infectious/inflammatory. No obvious fluid collection, joint or tendon sheath effusion MRI showed : Extensive cellulitis. No MRI evidence for acute osteomyelitis or septic arthritis. The imaged palm musculature demonstrates no evidence for myositis. Echo: no vegetation Overall systolic function is low normal. LVEF is 55%. RV is normal size and function. RVSP is estimated at 32 mmHg.LA size is normal. RA size is normal. Chiari network is noted in the right atrium. Received one day vancomycin and Zosyn As blood culture positive for Gram-positive cocci in pair and chain, we will change the antibiotic to cefazolin 1 g q.6 And because patient has had risk factor of IV drug abuse, we will add clindamycin to inhibit bacterial protein synthesis and suppress streptococcal toxin production Continue following blood culture for sensitivity, we will adjust antibiotic accordingly Symptomatic UTI frequency, hematuria Urine culture E coli sensitive to cefazolin Cefazolin started today Cathi Gallardo MD Internal medicine resident Infectious disease specialist consult note Agree with above note. Pt seen and examined with Dr. Gallardo. She has significant cellulitis right hand - suspect streptococcal infection. Needs elevation. Abx adjusted. Date of Service: Jul 23, 2025 Billing Provider: OMKAR GONZALEZ MD, ELAHE, RES Jul 23, 2025 10:35 OMKAR GONZALEZ MD Jul 23, 2025 22:37
[2025-07-23] MEDS: ceFAZolin/D5W- 1GM premix 50 ML IV SCH (15:46)
--- NOTE | 2025-07-23 15:46 | PROGRESS NOTE ---
Daily Progress Note Providers to CC ~ Antibiotic Timeout Antibiotic Ordered?: Yes Subjective No acute events overnight. Patient examined at bedside. No new complaints, not in acute distress. Patient denies chest pain, sob, palpitations, abdominal pain, n/v/d. Vss, labs notable for downtrending white count and otherwise unremarkable. ID consulted, vanco/Zosyn discontinued. Started on cefazolin and clindamycin. Objective Vital Signs Date Time Temp Pulse Resp B/P (MAP) Pulse Ox O2 Delivery O2 Flow Rate FiO2 07/23/25 15:40 16 07/23/25 12:13 98.0 94 115/71 (86) 97 Room Air 07/23/25 08:50 0.0 Result Diagram: 07/23/2572507/23/25 07 Physical Exam General: Generalized weakness, A&Ox 3, NAD HEENT: Normocephalic, PERRLA Neck: Supple, trachea midline, no JVD Chest: Clear to auscultation bilaterally Cardiovascular: RRR, S1&S2 GI: Soft and nontender Extremities: Edematous and erythematous right hand down to right wrist, pronounced edema of right index finger, small lesion on the dorsum of the index finger RESEARCH NURSE PRACTITIONER: CN II-XII intact, no focal deficits Musculoskeletal: No paraspinal muscle tenderness, no muscle spasm Skin: Warm and intact Problem\Assessment\Plan 40-year-old female came in with complaints of pain and swelling in the right hand region. Assessment & Plan Cellulitis, right hand Tensynovitis, right hand Sepsis 2/2 cellulitis- POA Septic arthritis, osteomyelitis- ruled out -Lactic acid, procal negative, CT soft tissue attenuation along the dorsal hand and index digit likely infectious/inflammatory. No obvious fluid collection, joint or tendon sheath effusion bilateral limited assessment. -07/22: fluids, vanco/Zosyn, 1/2 blood cx gram positive cocci, echo shows LVEF 55%, no evidence of vegetation; follow MRI -07/23: MRI done without contrast due to technical difficulty. ID consulted, vanco/Zosyn discontinued. Started on cefazolin and clindamycin. UTI, symptomatic -Zosyn Methamphetamine abuse Substance use navigator, psychotherapist social worker consult Code status: Full code DVT prophylaxis: Heparin Date of Service: Jul 23, 2025 Billing Provider: CHAPIN,CURTIS S ASSISTANT BANQUET MANAGER Common Visit Codes: [id number] INP/OBS CARE(HIGH) CURTIS SAMSON ASSISTANT BANQUET MANAGER Jul 23, 2025 15:46
[2025-07-23] MEDS: clindamycin-Cleocin 900mg/D5W 50 ML IV SCH (16:27)
[2025-07-23] MEDS ORDERED: VANCOMYCIN/WATER FOR INJ (PEG) 1.5GM/300 ML IVPB IV SCH (20:00)
[2025-07-24] VITALS (8 sets, daily range): BP systolic 103–138; BP diastolic 62–94; PULSE 73–86; RESP 12–16; TEMP 97.8–99; O2SAT 96–100
--- NOTE | 2025-07-24 09:48 | PROGRESS NOTE- Residence ---
Progress Note - Resident Providers to CC Resident Creating Document: CATHI GALLARDO RES ~ Antibiotic Timeout Antibiotic Ordered?: Yes Subjective Patient seen and examined at the bedside, swelling mildly decreased. Bedside de roly of the bulla was performed by Dr. Jiames, unclear cirrhosis, generally like fluid released, no active bleeding wound dressed. Objective Vital Signs Date Time Temp Pulse Resp B/P (MAP) Pulse Ox O2 Delivery O2 Flow Rate FiO2 07/24/25 07:56 16 07/24/25 07:06 96 Room Air 07/24/25 07:05 98.1 82 103/62 (76) 07/23/25 20:00 0.0 Result Diagram: 07/23/2572507/23/25725 General: Awake and Alert, no acute distress. HEENT: Conjunctiva pink, Sclera clear, Mucus Membranes moist. Neck: Supple without masses and tenderness. Resp: Lungs clear to auscultation bilaterally. Heart: Regular Rate and rhythm, normal S1 and S2 Abdomen: Soft and non tender no organomegaly Extremities: Right hand decreased edema on the index finger, and it is extended to the dorsum of the hand and forearm, sever erythema on upper 2/3 of index finger and tenderness, limited range of motion of PIP due to swelling and pain, overlying the PIP joint is a tense bolus lesion which decompressed by incision Pulse was intact Negative for splinter hemorrhage, Janeway lesions, Axillary: Right side, tender lymph node Skin: Warm and Dry., multiple track mathews Neurological: Speech is clear, alert, and oriented x 4, no gross neurological deficits Plan Plan 40 years old female with history of current methamphetamine IV drug abuse presented to the ED with hand swelling Sepsis Cellulitis IV drug methamphetamine Leukocytosis trending down, procalcitonin normal 1/2 blood culture positive for Gram-positive cocci in pair and chain CT scan showed: Soft tissue attenuation along the dorsal hand and index digit likely infectious/inflammatory. No obvious fluid collection, joint or tendon sheath effusion MRI showed : Extensive cellulitis. No MRI evidence for acute osteomyelitis or septic arthritis. The imaged palm musculature demonstrates no evidence for myositis. Echo: no vegetation Overall systolic function is low normal. LVEF is 55%. RV is normal size and function. RVSP is estimated at 32 mmHg.LA size is normal. RA size is normal. Chiari network is noted in the right atrium. Received one day vancomycin and Zosyn As blood culture positive for Gram-positive cocci in pair and chain, we changed the antibiotic to cefazolin 1 g q.6 And because patient has had risk factor of IV drug abuse, we will add clindamycin to inhibit bacterial protein synthesis and suppress streptococcal toxin production 07/24/25, cellulitis possibly due to strep, continue cefazolin 1 g q.6, and clindamycin 900 Q eight day 2 Patient still needs to received IV antibiotic couple of more days in the hospital Continue following blood culture for sensitivity, antibiotic we will adjust accordingly Symptomatic UTI frequency, hematuria Urine culture E coli sensitive to cefazolin Continue cefazolin, day two Cathi Gallardo MD Internal medicine resident Infectious disease progress note Agree with above note. Pt seen and examined with Dr. Gallardo. Bullous lesion drained at dorsal proximal aspect of 2nd finger right hand. Continue current abx. Date of Service: Jul 24, 2025 Billing Provider: OMKAR JAIMES MD, ELAHE, RES Jul 24, 2025 09:47 OMKAR JAIMES MD Jul 24, 2025 13:33
[2025-07-24 09:59] LABS: MEAN PLATELET VOLUME 8.9 FL (7.4-10.4); RED CELL DISTRIBUTION WIDTH 13.6 % (11.5-14.5)
[2025-07-24 10:12] LABS: CREATININE 0.63 MG/DL (0.40-0.90); TOTAL CARBON DIOXIDE 27.8 MMOL/L (24-32); eCRCL 99 ML/MIN; eGFR > 90 ML/MIN
--- NOTE | 2025-07-24 11:45 | PROGRESS NOTE ---
Daily Progress Note Providers to CC ~ Antibiotic Timeout Antibiotic Ordered?: Yes Subjective No acute events overnight. Patient examined at bedside. No new complaints, not in acute distress. Patient denies chest pain, sob, palpitations, abdominal pain, n/v/d. Vss, labs notable for normalized white count. 1 out of 2 blood culture resulted positive for Group A Streptococcus pyogens. Urine culture positive for E.coli. Continued on cefazolin and clindamycin. Objective Vital Signs Date Time Temp Pulse Resp B/P (MAP) Pulse Ox O2 Delivery O2 Flow Rate FiO2 07/24/25 10:00 98.7 86 14 117/71 (86) 100 Room Air 07/23/25 20:00 0.0 Result Diagram: 07/24/2590607/24/25 09 Physical Exam General: Generalized weakness, A&Ox 3, NAD HEENT: Normocephalic, PERRLA Neck: Supple, trachea midline, no JVD Chest: Clear to auscultation bilaterally Cardiovascular: RRR, S1&S2 GI: Soft and nontender Extremities: Edematous and erythematous right hand down to right wrist, pronounced edema of right index finger, small lesion on the dorsum of the index finger RETICLE PRINTER: CN II-XII intact, no focal deficits Musculoskeletal: No paraspinal muscle tenderness, no muscle spasm Skin: Blister right index finger Problem\Assessment\Plan 40-year-old female came in with complaints of pain and swelling in the right hand region. Assessment & Plan Cellulitis, right hand Bacteremia- POA Sepsis 2/2 cellulitis- POA Septic arthritis, osteomyelitis, tenosynovitis- ruled out -Lactic acid, procal negative, CT soft tissue attenuation along the dorsal hand and index digit likely infectious/inflammatory. No obvious fluid collection, joint or tendon sheath effusion bilateral limited assessment. -07/22: fluids, vanco/Zosyn, 1/2 blood cx gram positive cocci, echo shows LVEF 55%, no evidence of vegetation; follow MRI -07/23: MRI done without contrast due to technical difficulty. ID consulted, vanco/Zosyn discontinued. Started on cefazolin and clindamycin -07/24: 1 out of 2 blood culture resulted positive for Group A Streptococcus pyogens. Urine culture positive for E.coli. Continued on cefazolin and clindamycin. UTI, symptomatic -Zosyn Methamphetamine abuse Substance use navigator, social media marketing specialist consult Code status: Full code DVT prophylaxis: Heparin Date of Service: Jul 24, 2025 Billing Provider: CURTIS SAMSON Common Visit Codes: [id number] INP/OBS CARE(HIGH) CURTIS SAMSON Jul 24, 2025 11:45
[2025-07-24] MEDS: magnesium hydroxide 30ml (MOM) UD suspension PO PRN (19:42)
[2025-07-25 04:58] LABS: MEAN PLATELET VOLUME 7.5 FL (7.4-10.4); RED CELL DISTRIBUTION WIDTH 13.6 % (11.5-14.5)
[2025-07-25 05:00] VITALS: BP 126/74; PULSE 66; RESP 16; TEMP 97.6; O2SAT 96
[2025-07-25 05:21] LABS: CREATININE 0.55 MG/DL (0.40-0.90); TOTAL CARBON DIOXIDE 27.7 MMOL/L (24-32); eCRCL 114 ML/MIN; eGFR > 90 ML/MIN
[2025-07-25] MEDS ORDERED: VANCOMYCIN LEVEL IV ONE (07:30)
[2025-07-25 08:32] VITALS: RESP 16; O2SAT 96
[2025-07-25 10:00] VITALS: BP 120/57; PULSE 80; RESP 16; TEMP 97.8; O2SAT 97
--- NOTE | 2025-07-25 13:32 | PROGRESS NOTE ---
Daily Progress Note Providers to CC ~ Antibiotic Timeout Antibiotic Ordered?: Yes Subjective No acute events overnight. Patient examined at bedside. No new complaints, not in acute distress. Patient denies chest pain, sob, palpitations, abdominal pain, n/v/d. Vss, labs unremarkable. 1 out of 2 blood culture resulted positive for Group A Streptococcus pyogens. Urine culture positive for E.coli. Continued on cefazolin and clindamycin. Objective Vital Signs Date Time Temp Pulse Resp B/P (MAP) Pulse Ox O2 Delivery O2 Flow Rate FiO2 07/25/25 10:00 97.8 80 16 120/57 (78) 97 07/25/25 08:32 Room Air 0.0 Result Diagram: 07/25/2544507/25/25445 Physical Exam General: Generalized weakness, A&Ox 3, NAD HEENT: Normocephalic, PERRLA Neck: Supple, trachea midline, no JVD Chest: Clear to auscultation bilaterally Cardiovascular: RRR, S1&S2 GI: Soft and nontender Extremities: Edematous and erythematous right hand down to right wrist, pronounced edema of right index finger, small lesion on the dorsum of the index finger PICTURE FRAME MAKER: CN II-XII intact, no focal deficits Musculoskeletal: No paraspinal muscle tenderness, no muscle spasm Skin: Erythema right hand to wrist Problem\Assessment\Plan 40-year-old female came in with complaints of pain and swelling in the right hand region. Assessment & Plan Cellulitis, right hand Bacteremia- POA Sepsis 2/2 cellulitis- POA Septic arthritis, osteomyelitis, tenosynovitis- ruled out -Lactic acid, procal negative, CT soft tissue attenuation along the dorsal hand and index digit likely infectious/inflammatory. No obvious fluid collection, joint or tendon sheath effusion bilateral limited assessment. -07/22: fluids, vanco/Zosyn, 1/2 blood cx gram positive cocci, echo shows LVEF 55%, no evidence of vegetation; follow MRI -07/23: MRI done without contrast due to technical difficulty. ID consulted, vanco/Zosyn discontinued. Started on cefazolin and clindamycin -07/24: 1 out of 2 blood culture resulted positive for Group A Streptococcus pyogens. Urine culture positive for E.coli. Continued on cefazolin and clindamycin; s/p deroofing of bullae UTI, symptomatic -Zosyn Methamphetamine abuse Substance use navigator, social staff worker consult Code status: Full code DVT prophylaxis: Heparin Date of Service: Jul 25, 2025 Billing Provider: CURTIS SAMSON Common Visit Codes: [id number] INP/OBS CARE(HIGH) CURTIS SAMSON Jul 25, 2025 13:32
--- NOTE | 2025-07-25 15:16 | PROGRESS NOTE- Residence ---
Progress Note - Resident Providers to CC Resident Creating Document: CATHI GALLARDO RES ~ Antibiotic Timeout Antibiotic Ordered?: Yes Subjective Patient seen and examined at the bedside, swelling mildly decreased. Objective Vital Signs Date Time Temp Pulse Resp B/P (MAP) Pulse Ox O2 Delivery O2 Flow Rate FiO2 07/25/25 10:00 97.8 80 16 120/57 (78) 97 07/25/25 08:32 Room Air 0.0 Result Diagram: 07/25/256 07/25/25 0446 General: Awake and Alert, no acute distress. HEENT: Conjunctiva pink, Sclera clear, Mucus Membranes moist. Neck: Supple without masses and tenderness. Resp: Lungs clear to auscultation bilaterally. Heart: Regular Rate and rhythm, normal S1 and S2 Abdomen: Soft and non tender no organomegaly Extremities: Right hand decreased edema on the index finger, and it is extended to the dorsum of the hand and forearm, sever erythema on upper 2/3 of index finger and tenderness, limited range of motion of PIP due to swelling and pain Pulse was intact Negative for splinter hemorrhage, Janeway lesions, Axillary: Right side, tender lymph node Skin: Warm and Dry., multiple track mathews Neurological: Speech is clear, alert, and oriented x 4, no gross neurological deficits Plan Plan 40 years old female with history of current methamphetamine IV drug abuse presented to the ED with hand swelling Sepsis GAS Cellulitis IV drug methamphetamine Leukocytosis trending down, procalcitonin normal 1/2 blood culture positive for Gram-positive group A strep CT scan showed: Soft tissue attenuation along the dorsal hand and index digit likely infectious/inflammatory. No obvious fluid collection, joint or tendon sheath effusion MRI showed : Extensive cellulitis. No MRI evidence for acute osteomyelitis or septic arthritis. The imaged palm musculature demonstrates no evidence for myositis. Echo: no vegetation Overall systolic function is low normal. LVEF is 55%. RV is normal size and function. RVSP is estimated at 32 mmHg.LA size is normal. RA size is normal. Chiari network is noted in the right atrium. Received one day vancomycin and Zosyn As blood culture positive for Gram-positive cocci in pair and chain, we changed the antibiotic to cefazolin 1 g q.6 And because patient has had risk factor of IV drug abuse, we will add clindamycin to inhibit bacterial protein synthesis and suppress streptococcal toxin production 07/24/25, cellulitis possibly due to strep, continue cefazolin 1 g q.6, and clindamycin 900 Q eight day 2 Patient still needs to received IV antibiotic couple of more days in the hospital Continue following blood culture for sensitivity, antibiotic we will adjust accordingly 07/25/25: Continue cefazolin 1 g q.6 and clindamycin 900 Q 8 hour day three, due to extensive clinical symptoms, continue IV same regimen for weekend, patient could be DCed on Monday with p.o. high dose cephalexin 1 g Q eight hour if clinical symptoms improved during the weekend Symptomatic UTI frequency, hematuria Urine culture E coli sensitive to cefazolin Continue cefazolin, day 3 Cathi Gallardo MD Internal medicine resident Infectious disease progress note Date of Service: Jul 25, 2025 Billing Provider: DORI GOLDEN DO Addendum Patient seen and examined with Dr. Gallardo. Agree with the above assessment and plan. Patient is improving but still has some swelling of her forearm so is not quite ready for IV to PO conversion CATHI GALLARDO, RES Jul 25, 2025 15:16 DORI GOLDEN DO Jul 25, 2025 22:46
[2025-07-25 18:00] VITALS: BP 111/67; PULSE 82; RESP 16; TEMP 97.8; O2SAT 97
[2025-07-25 20:00] VITALS: RESP 17; O2SAT 90
[2025-07-25 22:00] VITALS: BP 114/66; PULSE 67; RESP 16; TEMP 98.2; O2SAT 98
[2025-07-26] VITALS (7 sets, daily range): BP systolic 111–125; BP diastolic 64–91; PULSE 64–70; RESP 16–20; TEMP 97.2–98; O2SAT 98–100
[2025-07-26 05:53] LABS: MEAN PLATELET VOLUME 8.0 FL (7.4-10.4); RED CELL DISTRIBUTION WIDTH 13.7 % (11.5-14.5)
[2025-07-26 06:07] LABS: CREATININE 0.61 MG/DL (0.40-0.90); TOTAL CARBON DIOXIDE 28.0 MMOL/L (24-32); eCRCL 102 ML/MIN; eGFR > 90 ML/MIN
[2025-07-26] MEDS ORDERED: oxyCODONE/APAP 5-325mg tablet PO PRN (09:55)
--- NOTE | 2025-07-26 12:36 | PROGRESS NOTE ---
Daily Progress Note Providers to CC ~ Antibiotic Timeout Antibiotic Ordered?: Yes Subjective No acute events overnight. Patient examined at bedside. No new complaints, not in acute distress. Patient denies chest pain, sob, palpitations, abdominal pain, n/v/d. Vss, labs unremarkable. 1 out of 2 blood culture resulted positive for Group A Streptococcus pyogens. Urine culture positive for E.coli. Continued on cefazolin and clindamycin. Objective Vital Signs Date Time Temp Pulse Resp B/P (MAP) Pulse Ox O2 Delivery O2 Flow Rate FiO2 07/26/25 11:08 16 07/26/25 10:00 97.2 125/64 (84) 98 Room Air 07/26/25 09:01 0.0 07/26/25 05:00 64 07/26/25 04:03 21 Result Diagram: 07/26/257 07/26/25436 Physical Exam General: Generalized weakness, A&Ox 3, NAD HEENT: Normocephalic, PERRLA Neck: Supple, trachea midline, no JVD Chest: Clear to auscultation bilaterally Cardiovascular: RRR, S1&S2 GI: Soft and nontender Extremities: Edematous and erythematous right hand down to right wrist, pronounced edema of right index finger, small lesion on the dorsum of the index finger CYLINDER PRESS FEEDER: CN II-XII intact, no focal deficits Musculoskeletal: No paraspinal muscle tenderness, no muscle spasm Skin: Severe erythema right hand to wrist Problem\Assessment\Plan 40-year-old female came in with complaints of pain and swelling in the right hand region. Assessment & Plan Cellulitis, right hand Bacteremia- POA Sepsis 2/2 cellulitis- POA Septic arthritis, osteomyelitis, tenosynovitis- ruled out -Lactic acid, procal negative, CT soft tissue attenuation along the dorsal hand and index digit likely infectious/inflammatory. No obvious fluid collection, joint or tendon sheath effusion bilateral limited assessment. -07/22: fluids, vanco/Zosyn, 1/2 blood cx gram positive cocci, echo shows LVEF 55%, no evidence of vegetation; follow MRI -07/23: MRI done without contrast due to technical difficulty. ID consulted, vanco/Zosyn discontinued. Started on cefazolin and clindamycin -07/24: 1 out of 2 blood culture resulted positive for Group A Streptococcus pyogens. Urine culture positive for E.coli. Continued on cefazolin and clindamycin; s/p deroofing of bullae -07/25: to be monitored on cefazolin and clindamycin for more days, per ID recommendation UTI, symptomatic -cx sensitive to cefazolin Methamphetamine abuse Substance use navigator, protective services social worker consult Code status: Full code DVT prophylaxis: Heparin Date of Service: Jul 26, 2025 Billing Provider: CURTIS SAMSON Common Visit Codes: [id number] INP/OBS CARE(HIGH) CURTIS SAMSON Jul 26, 2025 12:36
[2025-07-27 06:00] VITALS: BP 127/72; PULSE 66; RESP 15; TEMP 97.6; O2SAT 100
[2025-07-27 06:01] LABS: MEAN PLATELET VOLUME 7.4 FL (7.4-10.4); RED CELL DISTRIBUTION WIDTH 13.4 % (11.5-14.5)
[2025-07-27 06:19] LABS: CREATININE 0.66 MG/DL (0.40-0.90); TOTAL CARBON DIOXIDE 29.2 MMOL/L (24-32); eCRCL 95 ML/MIN; eGFR > 90 ML/MIN
--- NOTE | 2025-07-27 09:51 | PROGRESS NOTE ---
Daily Progress Note Providers to CC ~ Antibiotic Timeout Antibiotic Ordered?: Yes Subjective No acute events overnight. Patient examined at bedside. No new complaints, not in acute distress. Patient denies chest pain, sob, palpitations, abdominal pain, n/v/d. Vss, labs unremarkable.1 out of 2 blood culture resulted positive for Group A Streptococcus pyogens. Urine culture positive for E.coli. Continued on cefazolin and clindamycin. Objective Vital Signs Date Time Temp Pulse Resp B/P (MAP) Pulse Ox O2 Delivery O2 Flow Rate FiO2 07/27/25 06:00 97.6 66 15 127/72 (90) 100 Room Air 07/26/25 20:00 0.0 07/26/25 04:03 21 Result Diagram: 07/27/25 0535 07/27/25 0535 Physical Exam General: Generalized weakness, A&Ox 3, NAD HEENT: Normocephalic, PERRLA Neck: Supple, trachea midline, no JVD Chest: Clear to auscultation bilaterally Cardiovascular: RRR, S1&S2 GI: Soft and nontender Extremities: Edematous and erythematous right hand down to right wrist, pronounced edema of right index finger, small lesion on the dorsum of the index finger 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 Assessment & Plan Cellulitis, right hand Bacteremia- POA Sepsis 2/2 cellulitis- POA Septic arthritis, osteomyelitis, tenosynovitis- ruled out -Lactic acid, procal negative, CT soft tissue attenuation along the dorsal hand and index digit likely infectious/inflammatory. No obvious fluid collection, joint or tendon sheath effusion bilateral limited assessment. -07/22: fluids, vanco/Zosyn, 1/2 blood cx gram positive cocci, echo shows LVEF 55%, no evidence of vegetation; follow MRI -07/23: MRI done without contrast due to technical difficulty. ID consulted, vanco/Zosyn discontinued. Started on cefazolin and clindamycin -07/24: 1 out of 2 blood culture resulted positive for Group A Streptococcus pyogens. Urine culture positive for E.coli. 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
[2025-07-27 10:00] VITALS: BP 123/77; PULSE 81; RESP 17; TEMP 98.3; O2SAT 98
[2025-07-27 18:00] VITALS: BP_SYST 109; BP_SYST 144; BP_DIAS 42; BP_DIAS 66; PULSE 74; PULSE 75; RESP 14; RESP 17; TEMP 97.6; TEMP 98.4; O2SAT 100; O2SAT 97
[2025-07-27 20:00] VITALS: RESP 14; O2SAT 100
[2025-07-27 22:00] VITALS: BP 118/66; PULSE 72; RESP 15; TEMP 97.1; O2SAT 97
[2025-07-28 06:00] VITALS: BP 113/69; PULSE 62; RESP 15; TEMP 98.3; O2SAT 96
[2025-07-28 06:24] LABS: MEAN PLATELET VOLUME 7.3 FL (7.4-10.4); RED CELL DISTRIBUTION WIDTH 13.6 % (11.5-14.5)
[2025-07-28 06:48] LABS: CREATININE 0.88 MG/DL (0.40-0.90); TOTAL CARBON DIOXIDE 29.8 MMOL/L (24-32); eCRCL 71 ML/MIN; eGFR 72 ML/MIN
[2025-07-28 10:00] VITALS: BP 106/56; PULSE 83; RESP 18; TEMP 98.5; O2SAT 99
--- NOTE | 2025-07-28 10:01 | PROGRESS NOTE ---
Progress Note Dictate Providers to CC ~ Subjective Subjective: She states that her hand is doing better. She is wondering about leaving the hospital today and she was told that she would be set up with [facility]. Objective Objective: Pleasant middle-aged female lying in bed looking stable Right forearm without significant swelling Right 2nd finger with shallow wound at dorsal aspect over proximal phalanx Still with soft tissue swelling at finger and reduced range of motion Overall, soft tissue infection is improved Lab Results: 07/28/25 0554 07/28/25 0554 Problem\Assessment\Plan Additional Plan 1. Soft tissue infection at right hand, dominantly involving right 2nd finger 2. Group A streptococcal sepsis 3. E coli urinary tract infection Okay to discharge today with cephalexin 1 g 3 times daily for one week Wound care She has been encouraged to work on range of motion involving the joints of her 2nd finger OMKAR GONZALEZ MD Jul 28, 2025 10:01
[2025-07-28] MEDS ORDERED: CEPH-585 PO (12:04)
[2025-07-28] MEDS: JUVEN Smoothie Arginine/Glut./Ca2+Bmb (Juven 19.3pkt) 240ml cup PO SCH (12:44)
--- NOTE | 2025-07-28 13:05 | DISCHARGE SUMMARY ---
Discharge Summary Providers to CC ~ Discharge Summary Admission Diagnosis: CELLULITIS RIGHT HAND Hospital Course DATE OF ADMISSION: 07/21/25 DATE OF DISCHARGE: 07/28/25 Discharge Diagnosis\\Comment: Cellulitis, right hand Bacteremia- POA Sepsis 2/2 cellulitis- POA Septic arthritis, osteomyelitis, tenosynovitis- ruled out UTI, symptomatic Methamphetamine abuse Operations\\Procedures: None Consultants: ID Dr. Tate Jaimes Complications: None Condition on DC: Stable New Medications: Cephalexin*Monohydrate* (Keflex*) 500 Mg Capsule 2 CAP PO Q8H for 7 Days, #42 CAP Continued Medications: Home Med List (No Home Medications) Each Discharge Summary: History of Present Illness From H&P: "40-year-old female has come to the ED with chief complaints of pain and swelling in her right hand that started this morning. Patient says that she does not know the exact reason but most likely thinks that she may have scrat ched her hand by holding the leash of her dog. Patient reports that pain suddenly started this morning in her right hand knuckle region, gradually progressed in intensity to involve her whole of her right hand later on, associated with nausea. She rates the pain as 10/10 in intensity. Patient reports that she noticed a small prick on her right hand index finger which was not present earlier but is not sure how it occured. Patient denies any history of insect/animal bite, penetrating trauma, needle puncture or IV puncture. Patient also reports of having burning micturition and blood in urine since the last few days. She denies any other complaints of fever, sweating, vomiting, abdominal pain, loose stools." Hospital Course Diagnostic findings were notable for findings of sepsis, urinalysis positive for urinary tract infection, and CT revealing cellulitis without evidence of fluid collection, joint or tendon sheath effusion. Pertinent negative findings were normal lactic acid and negative procal. Patient was treated with intravenous fluids and empirical antibiotics. A subsequent findings of positive blood cu lture revealed Streptococcus pyogenes, MRI revealed extensive cellulitis without evidence of osteomyelitis or septic arthritis, TTE revealed LVEF of 55% without evidence of vegetation. Case was consulted with ID Dr. Jaimes who recommended cefazolin and clindamycin. Patient had deroofing of bullae at bedside. Patient did not experience further complications throughout the entire hospital stay and made a good recovery. Patient was seen and examined on the day of discharge. Erythema and edema of affected hand and wrist improved significantly. On day of discharge, vss and labs unremarkable. All labs, diagnostic workups, discharge plan discussed with patient in details during visit before discharge. All questions and concerns answered to the best of my professional knowledge. Patient is to be discharged to home with remaining course of antibiotics and to follow-up with PCP and Dr. Jaimes within 2 weeks. 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
== END 2025-07-28 13:53 | disposition home or self-care (01) | DRG 720 ==
LOC: ER 18:03 → ED HOLD 21:50 → SUR 3N 23:54 → ORTHO 4S 07-26 17:59
PROVIDERS: ADMIT Internal Medicine; ATTEND Nurse Practitioner Family
PROC: BP2 Imaging, Non-Axial Upper Bones, Computerized Tomography (CT Scan) (ICD-10-PCS; principal; 2025-07-21)
DX: A41.9 Sepsis, unspecified organism (principal); L03.011 Cellulitis of right finger; F15.10 Other stimulant abuse, uncomplicated; N39.0 Urinary tract infection, site not specified; B96.20 Unspecified Escherichia coli [E. coli] as the cause of diseases classified elsewhere; M54.9 Dorsalgia, unspecified; Z98.891 History of uterine scar from previous surgery
CPT/HCPCS: 36415; 71045; 73201; 73218; 80048; 80053; 80061; 80202; 80305; 81001; 83036; 83605; 83735; 84145; 84703; 85025; 87040; 87077; 87081; 87088; 87186; 93005; 93306; 96365; 96367; 96375; 99285; A4649; A6222; A6223; A6446; A6449; G0378; J0690; J0696; J1171; J1644; J1885; J2270; J2405; J2543; J3373; J3490; J7030; Q9967

== ENCOUNTER 2025-10-23 12:27 | Emergency (ER) | payer MEDICAID ==
[~2025-10-23] VITALS: Ht 160 cm; Wt 59.1 kg
[~2025-10-23 12:27] MED LIST changes: -BETA15CR4 TOP; -CYCL-394 PO; -FLUT16SP2 NS; -IBUP600T52 PO; -NAPR-56 PO; -ONDA-245 PO
[2025-10-23 12:30] VITALS: BP 139/87; PULSE 97; RESP 18; O2SAT 100
[2025-10-23] MEDS ORDERED: CEPH-585 PO (13:36)
--- NOTE | 2025-10-23 13:37 | Physician Documentation ---
History of Present Illness ~ Chief Complaint: Medical Clearance Stated Complaint: MED CLEARANCE Time Seen by MD: 12:38 Primary Medical Doctor: Larry STARR Is a very pleasant 40-year-old female that presents to the emergency department for medical clearance to attend drug rehabilitation at [facility]. Patient denies any medical symptoms at this time other than some residual cellulitis in her left index finger that she was previously placed on antibiotics for. Patient reports that it is better but has not resolved. We will place the patient on a course of Keflex here in the emergency department today. 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 Tetanus within 5 years?: No Medication Reconciliation Allergies: Coded Allergies: amoxicillin (Verified Allergy, Unknown, 07/21/25) Scheduled Cephalexin*Monohydrate* (Keflex*), 1 CAP PO QID Miscellaneous Medications Home Med List (No Home Medications), (Reported) Past Medical History Past Medical History: Pneumonia, Chronic Pain, Chronic Back Pain, MRSA Abscess Past Surgical History: Last Menstrual Period: Oct 13, 2025 Patient History: Patient reports no known family medical history. Alcohol Use: Occasionally Drug Use: marijuana, methamphetamine Lives with: Family Lives In: Home Occupation: unemployed Review of Systems ROS As stated above in the HPI, otherwise all systems are reviewed and negative. Physical Exam Vital Signs: Temperature: 98.9, Source: Oral, Heart Rate: 97, Respiratory Rate: 18, BP: 139/87, Pulse Oximetry: 100, Weight: 59.100 Oxygen Flow Rate: 0 Physical Exam VITALS: Reviewed and as above. GENERAL: Alert, no apparent distress. HEENT: Normocephalic, atraumatic, PERRL, EOMI, dry mucosa, no erythema RESPIRATORY: Lungs clear, normal breath sounds, no respiratory distress. CHEST: No accessory muscle use, no retractions CV: Regular rate, rhythm, no edema, no murmur, No: JVD GI: Soft, non-tender, bowels sounds present, no rebound, guarding, or rigidity BACK: No CVA tenderness, or swelling MUSCULOSKELETAL No deformities, no edema SKIN: Warm and dry, cellulitis in the left index finger noted during examination. NEURO: Oriented x4, No motor or sensory deficit PSYCH: Normal mood and affect, no agitation Progress Results/Orders Results/Orders Vital Signs 10/23/25 12:30 Temp 98.9 Pulse 97 Resp 18 B/P (MAP) 139/87 Pulse Ox 100 O2 Flow Rate 0 Medical Decision Making Additional information obtaine: other Findings Is a very pleasant 40-year-old female that presents to the emergency department for medical clearance to attend drug rehabilitation at [facility]. Patient denies any medical symptoms at this time other than some residual cellulitis in her left index finger that she was previously placed on antibiotics for. Patient reports that it is better but has not resolved. We will place the patient on a course of Keflex here in the emergency department today. 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 Differential Dx:Considerations: Include: Intoxication-Alcohol, Intoxication- Other drug, Personality disorder, Substance abuse disorder, Acute delirium, Closed head injury, Cervical spine injury, Skull fracture, Fracture(s), Abrasion, Contusion, Foreign body, Hematoma, Laceration, Alcohol withdrawl syndrom, Encephalopathy, Hepatitis, Medically stable, Other Departure Disposition: 01 HOME / SELF CARE / HOMELESS Impression: Primary Impression: General medical exam Additional Impression: Cellulitis Condition: Stable Discharge Instructions: Cellulitis, Adult, [id number], Medical Screening Exam Additional Instructions: Is a very pleasant 40-year-old female that presents to the emergency department for medical clearance to attend drug rehabilitation at [facility]. Patient denies any medical symptoms at this time other than some residual cellulitis in her left index finger that she was previously placed on antibiotics for. Patient reports that it is better but has not resolved. We will place the patient on a course of Keflex here in the emergency department today. 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 The patient has been medically cleared to attend the [facility] drug rehabilitation program. Referrals: NO PRIMARY CARE PROVIDER (PCP) Prescriptions Cephalexin*Monohydrate* (Keflex*) 500 Mg Capsule 1 CAP PO QID for 7 Days, #28 CAP Prov: UYEN SALMERON 10/23/25 Education Educated: Patient Educated regarding: diagnosis, treatment, need for follow up Signature Scribe Signature: A Attestation: Scribed for Uyen Salmeron by CHAYA Jay . 10/23/25 13:38 UYEN SALMERON Oct 23, 2025 13:36
[2025-10-23 13:58] VITALS: TEMP 98.9
== END 2025-10-23 13:59 | disposition home or self-care (01) ==
LOC: ER 12:28
DX: Z00.00 Encounter for general adult medical examination without abnormal findings (principal); L03.012 Cellulitis of left finger; G89.29 Other chronic pain; F12.90 Cannabis use, unspecified, uncomplicated; F15.90 Other stimulant use, unspecified, uncomplicated; Z88.1 Allergy status to other antibiotic agents; Z56.0 Unemployment, unspecified; Z86.14 Personal history of Methicillin resistant Staphylococcus aureus infection; Z72.89 Other problems related to lifestyle
CPT/HCPCS: 99283